=== PATIENT | female | born 1970 | race African-American/Black ===

== ENCOUNTER 2018-10-02 14:26 | Emergency (ER) | payer MEDICAID ==
[~2018-10-02] VITALS: Ht 162.6 cm; Wt 61.4 kg
[2018-10-02] MEDS ORDERED: CITA-106 PO (14:40)
[2018-10-02] MEDS ORDERED: GABA-531 PO (14:40)
[2018-10-02] MEDS ORDERED: TRAZ-220 PO (14:40)
[2018-10-02] MEDS ORDERED: LIDOCAINE 5% TRANSDERMAL PATCH TD ONE (16:30)
[2018-10-02] MEDS ORDERED: ACETAMINOPHEN 325 MG TABLET PO ONE (17:15)
[2018-10-02] MEDS ORDERED: KETOROLAC TROMETHAMINE 30 MG/ML VIAL IM ONE (17:15)
[2018-10-02 17:19] LABS: APPEARANCE,URINE SLIGHTLY CLOUDY (CLEAR); BILIRUBIN,URINE PRELIM. POSITIVE (NEGATIVE); GLUCOSE, URINE (UA) NEGATIVE (NEGATIVE); KETONES,URINE TRACE mg/dL (NEGATIVE); LEUKOCYTE ESTERASE ,URINE NEGATIVE (NEGATIVE); NITRATE,URINE POSITIVE (NEGATIVE); OCCULT BLOOD,URINE NEGATIVE (NEGATIVE); PH,URINE 5.5 (5.0-8.0); PROTEIN,URINE NEGATIVE (NEGATIVE); UROBILINOGEN,URINE 0.2 mg/dL (<=1.0)
[2018-10-02 17:35] VITALS: BP 110/58
[2018-10-02 17:49] LABS: BACTERIA,URINE Many /HPF (None Seen); CALCIUM OXALATE CRYSTALS,UR Moderate /LPF (None Seen); RBC,URINE 0-2 /HPF (0-2); WBC,URINE 0-2 /HPF (0-5)
== END 2018-10-02 17:56 | disposition left against medical advice (07) ==
LOC: EMS 14:26
DX: M79.7 Fibromyalgia (principal); M54.5 Low back pain; M25.511 Pain in right shoulder; M25.531 Pain in right wrist; F41.9 Anxiety disorder, unspecified; Z91.040 Latex allergy status
CPT/HCPCS: 81001; 81025; 87086; 99283; J1885

== ENCOUNTER 2019-02-28 11:18 | Emergency (ER) | payer MEDICAID ==
[~2019-02-28] VITALS: Ht 160 cm; Wt 53.2 kg
[~2019-02-28 11:18] MED LIST: CITA-106 PO; GABA-531 PO; TRAZ-220 PO
[2019-02-28 11:46] VITALS: BP 94/47
[2019-02-28] MEDS ORDERED: PERTUSS(ACELL),DIPH,TET VAC/PF 0.5 ML VIAL IM ONE (12:30)
[2019-02-28] MEDS ORDERED: HYDROCODONE/ACETAMINOPHEN 5-325 MG TABLET PO ONE (12:30)
== END 2019-02-28 12:55 | disposition left against medical advice (07) ==
LOC: EMS 11:18
DX: T23.201A Burn of second degree of right hand, unspecified site, initial encounter (principal); F41.9 Anxiety disorder, unspecified; Z91.040 Latex allergy status; X10.2XXA Contact with fats and cooking oils, initial encounter; Y93.89 Activity, other specified; Y92.89 Other specified places as the place of occurrence of the external cause; Y99.8 Other external cause status
CPT/HCPCS: 90471; 90715

== ENCOUNTER 2020-09-13 11:55 | Inpatient (IN) | payer MEDICAID ==
[~2020-09-13] VITALS: Ht 160 cm; Wt 51.7 kg
[~2020-09-13 11:55] MED LIST changes: -CITA-106 PO; +GABA-1181 PO; -GABA-531 PO; -TRAZ-220 PO
[2020-09-13] MEDS ORDERED: GABA-1181 PO (12:12)
[2020-09-13] MEDS ORDERED: ONDA-104 PO (12:12)
[2020-09-13] MEDS ORDERED: TRAZ-257 PO (12:12)
[2020-09-13 12:28] LABS: COVID AG,FIA SOURCE NASOPHARYNGEAL
[2020-09-13 12:32] LABS: BASOPHILS % (AUTO) 0.6 % (0.0-2.0); EOSINOPHILS % (AUTO) 1.3 % (1.0-6.0); HEMATOCRIT 37.4 % (36-46); HEMOGLOBIN 12.3 g/dL (12.0-16.0); LYMPHOCYTES # (AUTO) 1.3 K/uL (1.0-4.8); LYMPHOCYTES % (AUTO) 52.6 % (22.0-44.0); MEAN CORPUSCULAR HEMOGLOBIN 30.9 pg (26.0-34.0); MEAN CORPUSCULAR VOLUME 93 fL (80-100); MONOCYTES # (AUTO) 0.2 K/uL (0.1-1.0); MONOCYTES % (AUTO) 7.9 % (2.0-9.0); NEUTROPHILS # (AUTO) 0.9 K/uL (1.8-7.7); NEUTROPHILS % (AUTO) 37.6 % (40.0-70.0); PLATELET COUNT (AUTO) 249 K/uL (150-450); RED CELL DISTRIBUTION WIDTH 12.9 % (11.5-14.5)
[2020-09-13 12:44] LABS: ANION GAP 8 mmol/L (8-16); CALCIUM, TOTAL 8.2 mg/dL (8.8-10.5); CARBON DIOXIDE 27 mmol/L (22-29); CHLORIDE 109 mmol/L (98-107); CREATININE 0.67 mg/dL (0.60-1.30); GLOMERULAR FILTR. RATE CALC > 60 mL/min (>60); GLUCOSE,RANDOM 98 mg/dL (70-110); POTASSIUM 3.9 mmol/L (3.5-5.1); SODIUM SERUM 144 mmol/L (136-145); UREA NITROGEN, BLOOD 7 mg/dL (7-18)
[2020-09-13 12:50] LABS: ALANINE AMINOTRANSFERASE 15 U/L (12-78); ALBUMIN 3.5 g/dL (3.4-5.0); ALKALINE PHOSPHATASE 54 U/L (46-116); ASPARTATE AMINOTRANSFERASE 19 U/L (15-37); BILIRUBIN,TOTAL 0.4 mg/dL (0.1-1.0); TOTAL PROTEIN, SERUM 6.7 g/dL (6.4-8.2)
[2020-09-13 12:52] LABS: ACETAMINOPHEN < 2 mcg/mL (10-30)
[2020-09-13 13:20] LABS: SALICYLATE < 0.2 mg/dL (2.8-20.0)
[2020-09-13] MEDS ORDERED: ZOLPIDEM TARTRATE 10 MG TABLET PO PRN (14:15)
[2020-09-13] MEDS ORDERED: HALOPERIDOL 5 MG TABLET PO PRN (14:15)
[2020-09-13 16:14] LABS: AMPHET/METH SCREEN,URINE POSITIVE (NEGATIVE); BARBITURATE SCREEN, URINE NEGATIVE (NEGATIVE); BENZODIAZEPINES SCREEN,URINE NEGATIVE (NEGATIVE); CANNABINOID SCREEN,URINE NEGATIVE (NEGATIVE); COCAINE SCREEN,URINE NEGATIVE (NEGATIVE); METHADONE SCREEN, URINE NEGATIVE (NEGATIVE); OPIATE SCREEN,URINE NEGATIVE (NEGATIVE); PHENCYCLIDINE SCREEN,URINE NEGATIVE (NEGATIVE)
[2020-09-14 00:37] VITALS: BP 119/76
[2020-09-14 07:28] LABS: CHOL/HDL RATIO 2.6 (3.9-5.7)
[2020-09-14 08:36] VITALS: BP 107/68
[2020-09-14] MEDS ORDERED: LOPERAMIDE HCL 2 MG CAPSULE PO PRN (09:15)
[2020-09-14] MEDS ORDERED: DOCUSATE SODIUM 100 MG CAPSULE PO PRN (09:15)
[2020-09-14] MEDS ORDERED: MAGNESIUM HYDROXIDE SUSPENSION 30 ML UDCUP PO PRN (09:15)
[2020-09-14] MEDS ORDERED: CloNIDine HCL 0.1 MG TABLET PO PRN (09:15)
[2020-09-14] MEDS ORDERED: PETROLATUM,WHITE 28 GM JELLY TP PRN (09:15)
[2020-09-14] MEDS ORDERED: ONDANSETRON HCL 4 MG TABLET PO PRN (09:15)
[2020-09-14] MEDS ORDERED: ACETAMINOPHEN 325 MG TABLET PO PRN (09:15)
[2020-09-14] MEDS ORDERED: ALBUTEROL SULFATE HFA 90 MCG/PUFF 8 GM INHALER IH PRN (09:15)
[2020-09-14] MEDS ORDERED: GuaiFENesin/D-METHORPHAN [SUGAR-FREE] 200-20MG/10 ML SYRUP UDCUP PO PRN (09:15)
[2020-09-14] MEDS ORDERED: MAG HYDROX/AL HYDROX/SIMETH ES 30 ML SUSPENSION UDCUP PO PRN (09:15)
[2020-09-14] MEDS: SERTRALINE HCL 50 MG TABLET PO SCH (12:46)
[2020-09-14] MEDS: GABAPENTIN 300 MG CAPSULE PO SCH ×2 (12:46→16:43)
[2020-09-14 16:13] VITALS: BP 103/59
[2020-09-14] MEDS: QUEtiapine FUMARATE 25 MG TABLET PO SCH (20:24)
[2020-09-15 00:17] VITALS: BP 96/62
[2020-09-15] MEDS ORDERED: INFLUENZA VIRUS VACCINE QVS 2020-21 (6MO+)/PF 60 MCG/0.5 ML SYRINGE IM ONE (04:30)
[2020-09-15 08:30] VITALS: BP 111/72
[2020-09-15] MEDS: GABAPENTIN 300 MG CAPSULE PO SCH ×3 (09:56→16:31)
[2020-09-15] MEDS: SERTRALINE HCL 50 MG TABLET PO SCH (10:10)
[2020-09-15] MEDS: QUEtiapine FUMARATE 25 MG TABLET PO SCH (20:32)
[2020-09-16 06:32] VITALS: BP 104/74
[2020-09-16] MEDS: GABAPENTIN 300 MG CAPSULE PO SCH ×3 (08:30→16:17)
[2020-09-16] MEDS: SERTRALINE HCL 50 MG TABLET PO SCH ×2 (08:30→16:17)
[2020-09-16 08:52] VITALS: BP 101/61
[2020-09-16 19:11] VITALS: BP 101/61
[2020-09-16] MEDS: QUEtiapine FUMARATE 25 MG TABLET PO SCH (20:07)
[2020-09-17] MEDS: GABAPENTIN 300 MG CAPSULE PO SCH ×3 (09:00→16:34)
[2020-09-17 09:13] VITALS: BP 109/67
[2020-09-17] MEDS: SERTRALINE HCL 50 MG TABLET PO SCH ×2 (12:12→16:34)
[2020-09-17 16:10] VITALS: BP 122/76
[2020-09-17] MEDS: QUEtiapine FUMARATE 25 MG TABLET PO SCH (20:20)
[2020-09-18] MEDS: LORazepam 2 MG TABLET PO PRN (05:36)
[2020-09-18] MEDS: GABAPENTIN 300 MG CAPSULE PO SCH ×3 (09:26→16:06)
[2020-09-18] MEDS: SERTRALINE HCL 50 MG TABLET PO SCH ×2 (09:26→16:06)
[2020-09-18 11:47] VITALS: BP 105/72
[2020-09-18 16:26] VITALS: BP 107/62
[2020-09-18] MEDS: QUEtiapine FUMARATE 100 MG TABLET PO SCH (20:18)
[2020-09-19] MEDS: GABAPENTIN 300 MG CAPSULE PO SCH ×3 (08:50→17:01)
[2020-09-19] MEDS: SERTRALINE HCL 50 MG TABLET PO SCH ×2 (08:50→17:01)
[2020-09-19 09:19] VITALS: BP 122/77
[2020-09-19] MEDS: LORazepam 2 MG TABLET PO PRN (12:54)
[2020-09-19 16:00] VITALS: BP 111/67
[2020-09-19] MEDS: QUEtiapine FUMARATE 100 MG TABLET PO SCH (20:30)
[2020-09-20 01:11] VITALS: BP 118/69
[2020-09-20 05:40] VITALS: BP 120/71
[2020-09-20 08:00] VITALS: BP 103/65
[2020-09-20] MEDS: GABAPENTIN 300 MG CAPSULE PO SCH ×3 (08:18→16:20)
[2020-09-20] MEDS: SERTRALINE HCL 50 MG TABLET PO SCH ×2 (08:18→16:20)
[2020-09-20 14:28] LABS: COVID AG,FIA SOURCE NASOPHARYNGEAL
[2020-09-20] MEDS: NICOTINE 14 MG/24 HOUR PATCH TD PRN (16:24)
[2020-09-20 16:30] VITALS: BP 107/61
[2020-09-20] MEDS: QUEtiapine FUMARATE 100 MG TABLET PO SCH (20:17)
[2020-09-20] MEDS: LORazepam 2 MG TABLET PO PRN (20:20)
[2020-09-21 02:26] VITALS: BP 96/58
[2020-09-21] MEDS: SERTRALINE HCL 50 MG TABLET PO SCH ×2 (08:34→16:29)
[2020-09-21] MEDS: GABAPENTIN 300 MG CAPSULE PO SCH ×3 (08:34→16:29)
[2020-09-21 08:45] VITALS: BP 108/65
[2020-09-21 16:00] VITALS: BP 124/92
[2020-09-21] MEDS: QUEtiapine FUMARATE 100 MG TABLET PO SCH (20:11)
[2020-09-21] MEDS: NICOTINE 14 MG/24 HOUR PATCH TD PRN (21:17)
[2020-09-22 01:00] VITALS: BP 103/59
[2020-09-22] MEDS: IBUPROFEN 400 MG TABLET PO PRN (01:00)
[2020-09-22 08:00] VITALS: BP 114/68
[2020-09-22] MEDS: SERTRALINE HCL 50 MG TABLET PO SCH ×2 (08:28→16:47)
[2020-09-22] MEDS: GABAPENTIN 300 MG CAPSULE PO SCH ×3 (08:28→16:47)
[2020-09-22 16:00] VITALS: BP 120/80
[2020-09-22] MEDS: NICOTINE 14 MG/24 HOUR PATCH TD PRN (17:07)
[2020-09-22] MEDS: QUEtiapine FUMARATE 100 MG TABLET PO SCH (20:21)
[2020-09-23 04:49] VITALS: BP 123/67
[2020-09-23] MEDS: IBUPROFEN 400 MG TABLET PO PRN ×2 (04:49→12:41)
[2020-09-23] MEDS: GABAPENTIN 300 MG CAPSULE PO SCH ×3 (08:04→16:12)
[2020-09-23] MEDS: SERTRALINE HCL 50 MG TABLET PO SCH ×2 (08:04→16:12)
[2020-09-23 10:18] VITALS: BP 107/61
[2020-09-23 12:41] VITALS: BP 124/87
[2020-09-23 13:41] VITALS: BP 111/65
[2020-09-23] MEDS: NICOTINE 14 MG/24 HOUR PATCH TD PRN (15:21)
[2020-09-23 16:00] VITALS: BP 108/60
[2020-09-23] MEDS: LORazepam 2 MG TABLET PO PRN (16:13)
[2020-09-23] MEDS ORDERED: SUMAtriptan SUCCINATE 25 MG TABLET PO SCH ×2 (17:00)
[2020-09-23] MEDS: SUMAtriptan SUCCINATE 25 MG TABLET PO PRN (17:16)
[2020-09-23] MEDS: QUEtiapine FUMARATE 100 MG TABLET PO SCH (20:15)
[2020-09-24 00:30] VITALS: BP 101/56
[2020-09-24] MEDS: IBUPROFEN 400 MG TABLET PO PRN (00:30)
[2020-09-24 08:00] VITALS: BP 99/60
[2020-09-24] MEDS: GABAPENTIN 300 MG CAPSULE PO SCH ×3 (08:49→16:38)
[2020-09-24] MEDS: SERTRALINE HCL 50 MG TABLET PO SCH ×2 (08:49→16:38)
[2020-09-24] MEDS: SUMAtriptan SUCCINATE 25 MG TABLET PO PRN (08:56)
[2020-09-24] MEDS: LORazepam 2 MG TABLET PO PRN ×2 (12:28→18:46)
[2020-09-24 16:51] VITALS: BP 116/68
[2020-09-24] MEDS: NICOTINE 14 MG/24 HOUR PATCH TD PRN (18:47)
[2020-09-24] MEDS: QUEtiapine FUMARATE 100 MG TABLET PO SCH (20:04)
[2020-09-25] MEDS: SERTRALINE HCL 50 MG TABLET PO SCH ×2 (08:32→16:15)
[2020-09-25] MEDS: GABAPENTIN 300 MG CAPSULE PO SCH ×3 (08:32→16:15)
[2020-09-25] MEDS: LORazepam 2 MG TABLET PO PRN ×2 (08:32→16:15)
[2020-09-25] MEDS: NICOTINE 14 MG/24 HOUR PATCH TD PRN ×2 (08:35→16:15)
[2020-09-25 09:26] VITALS: BP 98/68
[2020-09-25] MEDS: SUMAtriptan SUCCINATE 25 MG TABLET PO PRN (16:15)
[2020-09-25 17:13] VITALS: BP 93/74
[2020-09-25] MEDS: QUEtiapine FUMARATE 100 MG TABLET PO SCH (20:46)
[2020-09-26] MEDS: LORazepam 2 MG TABLET PO PRN ×3 (08:26→19:50)
[2020-09-26] MEDS: SERTRALINE HCL 50 MG TABLET PO SCH ×2 (08:26→16:24)
[2020-09-26] MEDS: GABAPENTIN 300 MG CAPSULE PO SCH ×3 (08:26→16:24)
[2020-09-26 09:47] VITALS: BP 104/65
[2020-09-26 17:03] VITALS: BP 113/73
[2020-09-26] MEDS: QUEtiapine FUMARATE 100 MG TABLET PO SCH (19:50)
[2020-09-26] MEDS: NICOTINE 14 MG/24 HOUR PATCH TD PRN (19:51)
[2020-09-27] MEDS: SERTRALINE HCL 50 MG TABLET PO SCH ×2 (08:33→16:52)
[2020-09-27] MEDS: LORazepam 2 MG TABLET PO PRN ×3 (08:33→21:05)
[2020-09-27] MEDS: GABAPENTIN 300 MG CAPSULE PO SCH ×3 (08:33→16:52)
[2020-09-27 09:01] VITALS: BP 124/62
[2020-09-27 16:02] VITALS: BP 107/67
[2020-09-27 16:17] LABS: COVID AG,FIA SOURCE NASOPHARYNGEAL
[2020-09-27] MEDS: QUEtiapine FUMARATE 100 MG TABLET PO SCH (21:04)
[2020-09-27] MEDS: NICOTINE 14 MG/24 HOUR PATCH TD PRN (21:10)
[2020-09-28 08:28] VITALS: BP 100/68
[2020-09-28] MEDS: GABAPENTIN 300 MG CAPSULE PO SCH ×3 (08:29→16:28)
[2020-09-28] MEDS: SERTRALINE HCL 50 MG TABLET PO SCH ×2 (08:29→16:28)
[2020-09-28] MEDS: LORazepam 2 MG TABLET PO PRN ×2 (10:18→19:10)
[2020-09-28 16:09] VITALS: BP 110/69
[2020-09-28] MEDS: NICOTINE 14 MG/24 HOUR PATCH TD PRN (16:32)
[2020-09-28] MEDS: QUEtiapine FUMARATE 100 MG TABLET PO SCH (20:42)
[2020-09-29 08:26] VITALS: BP 98/65
[2020-09-29 08:30] VITALS: BP 102/65
[2020-09-29] MEDS: GABAPENTIN 300 MG CAPSULE PO SCH (08:55)
[2020-09-29] MEDS: SERTRALINE HCL 50 MG TABLET PO SCH (08:56)
[2020-09-29] MEDS: LORazepam 2 MG TABLET PO PRN (08:57)
[2020-09-29] MEDS ORDERED: QUET100T PO (09:15)
[2020-09-29] MEDS ORDERED: SERT-158 PO (09:15)
== END 2020-09-29 12:00 | disposition short-term general hospital (02) | DRG 751 ==
LOC: EMS 11:57 → 3EI 14:15
PROVIDERS: ADMIT Psychiatry & Neurology Child & Adolescent Psychiatry; ATTEND Psychiatry & Neurology Child & Adolescent Psychiatry
DX: F33.2 Major depressive disorder, recurrent severe without psychotic features (principal); R45.851 Suicidal ideations; Z20.822 Contact with and (suspected) exposure to COVID-19; F41.8 Other specified anxiety disorders; F43.10 Post-traumatic stress disorder, unspecified; M79.7 Fibromyalgia; I95.9 Hypotension, unspecified; D72.819 Decreased white blood cell count, unspecified; G43.909 Migraine, unspecified, not intractable, without status migrainosus; T43.212A Poisoning by selective serotonin and norepinephrine reuptake inhibitors, intentional self-harm, initial encounter; Y92.89 Other specified places as the place of occurrence of the external cause; Z59.0 Homelessness; Z91.19 Patient's noncompliance with other medical treatment and regimen; Z91.5 Personal history of self-harm; Z90.721 Acquired absence of ovaries, unilateral; Z91.040 Latex allergy status
CPT/HCPCS: 87426; 93005; 99285; G0480; G0481